=== PATIENT | male | born 1990 | race American Indian/Alaskan Native ===

== ENCOUNTER 2017-01-09 07:09 | Emergency (ER) | payer BC ==
[2017-01-09 07:35] VITALS: BP 134/74
--- NOTE | 2017-01-09 08:20 | Emergency Department Report ---
HPI - General Chief Complaint: Headache Time Seen by Provider: 01/09/17 08:06 - HPI HPI: 26-year-old male presents today with headache since 2200 hrs. last night. Positive for history of headaches but states that this is the worst headache he' s ever had. Denies head injury or loss of consciousness. Patient states usually ibuprofen works but he's had ibuprofen 800 mg without relief. Positive for nasal congestion. Describes his pain as 8 out of 10 constant, throbbing pain. Denies numbness, weakness, paresthesias. Denies fever, chills, nausea, vomiting, visual changes, dizziness, confusion, cough, chest pain, shortness of breath, abdominal pain. Patient denies any testicular pain, mass, urinary symptoms or penile discharge at this time. ED Past Medical Hx - Past Medical History Previous Medical History?: No - Surgical History Past Surgical History?: No - Social History Smoking Status: Current Every Day Smoker Substance Use Type: Alcohol - Medications Home Medications: Home Medications Medication Instructions Recorded Confirmed Last Taken Type Amoxicillin [Trimox CAP] 500 mg PO Q8H #30 capsule 12/30/14 Unknown Rx HYDROcodone/APAP 5-325 [[place] 1 each PO Q6HR PRN #12 tablet 12/30/14 Unknown Rx 5/325] predniSONE [Deltasone] 20 mg PO TID #9 tab 12/30/14 Unknown Rx Cephalexin [Keflex] 500 mg PO TID #21 cap 09/08/15 Unknown Rx ED Review of Systems ROS: Stated complaint: HEADACHES/GROIN PAIN Other details as noted in HPI Constitutional: denies: chills, fever, malaise Eyes: denies: eye pain, vision change ENT: denies: ear pain, throat pain, congestion Respiratory: denies: cough, shortness of breath, wheezing Cardiovascular: denies: chest pain, palpitations Endocrine: no symptoms reported Gastrointestinal: denies: abdominal pain, nausea, vomiting Genitourinary: denies: urgency, dysuria, frequency, hematuria, discharge, testicular pain, testicular mass Musculoskeletal: denies: back pain Neurological: headache. denies: weakness, numbness, paresthesias, confusion, abnormal gait Physical Exam - Physical Exam Vital Signs: Vital Signs 01/09/17 07:29 Temperature 97.7 F Pulse Rate 84 Respiratory 18 Rate Blood Pressure 134/74 O2 Sat by Pulse 98 Oximetry Physical Exam: GENERAL: The patient is well-developed and well-nourished. Patient is in NAD. HEAD: Normocephalic. Atraumatic. EYES: Extraocular motions are intact, PERRL. EARS: External auditory canals and tympanic membranes clear; hearing grossly intact. NOSE: Normal nasal mucosa with no nasal discharge. THROAT: No erythema, swelling or exudates. NECK: Supple, nontender, without lymphadenopathy. No meningitic signs are noted. No midline or paraspinal tenderness to palpation. Full range of motion. CHEST/LUNGS: Clear to auscultation throughout. HEART/CARDIOVASCULAR: Regular rate and rhythm. No murmurs, rubs or gallops. ABDOMEN: Abdomen is soft, nontender. Bowel sounds normoactive. No guarding or rebound tenderness. EXTREMITIES: Peripheral pulses intact. Capillary refill less than 2 seconds. NEURO: Alert and oriented x 3. Normal gait. CN II-XII intact. Symmetrical strength and sensation. Negative Romberg or pronator drift. Cerebellar testing normal. GCS score of 15. ED Course Vital Signs 01/09/17 07:29 Temperature 97.7 F Pulse Rate 84 Respiratory 18 Rate Blood Pressure 134/74 O2 Sat by Pulse 98 Oximetry ED Medical Decision Making - Lab Data Vital Signs 01/09/17 07:29 Temperature 97.7 F Pulse Rate 84 Respiratory 18 Rate Blood Pressure 134/74 O2 Sat by Pulse 98 Oximetry - Radiology Data Radiology results: report reviewed CT HEAD WITHOUT CONTRAST: HISTORY: Headache. Serial contiguous axial images were obtained through the cranium. Intravenous contrast material was not administered. The ventricles are normal in size and appearance. There is no mass effect or midline shift. No areas of abnormally increased or decreased attenuation are seen. No mass lesion is seen. The mastoid air cells and visualized portions of the sinuses are normal. IMPRESSION: Cranial CT scan within normal limits. - Medical Decision Making 26-year-old male presents today with headaches since 2200 hrs. last night that S worse than usual. His CT results revealed no acute processes. Patient has been given Toradol, Benadryl, Zofran, [place] and reports symptomatic relief. A referral for neurologist has been provided. Patient is in no acute distress at this time. He will be discharged home and is encouraged to follow up with a primary care provider. He is encouraged to return to the emergency room for any worsening symptoms. Critical care attestation.: If time is entered above; I have spent that time in minutes in the direct care of this critically ill patient, excluding procedure time. ED Disposition Clinical Impression: Headache Qualifiers: Headache type: unspecified Headache chronicity pattern: acute headache Intractability: not intractable Qualified Code(s): R51 - Headache Disposition: DISCHARGED TO HOME OR SELFCARE Is pt being admited?: No Does the pt Need Aspirin: No Condition: Stable Instructions: Acute Headache (ED) Additional Instructions: Follow-up with primary care provider. Return to the emergency department if symptoms worsen. Referrals: PRIMARY CAREMD [Primary Care Provider] - 3-5 Days DARRON SMITH MD [Staff Physician] - 3-5 Days [facility] [Outside] - 3-5 Days Forms: Work/School Release Form(ED)
--- NOTE | 2017-01-09 09:02 | Cat Scan Report ---
CT HEAD WITHOUT CONTRAST: HISTORY: Headache. Serial contiguous axial images were obtained through the cranium. Intravenous contrast material was not administered. The ventricles are normal in size and appearance. There is no mass effect or midline shift. No areas of abnormally increased or decreased attenuation are seen. No mass lesion is seen. The mastoid air cells and visualized portions of the sinuses are normal. IMPRESSION: Cranial CT scan within normal limits.
[2017-01-09] MEDS ORDERED: NORCO 5/325 PO ONE (09:09)
[2017-01-09] MEDS ORDERED: ZOFRAN ODT PO ONE (09:09)
[2017-01-09] MEDS ORDERED: TORADOL IM ONE (09:09)
[2017-01-09] MEDS ORDERED: BENADRYL PO ONE (09:09)
== END 2017-01-09 10:01 | disposition home or self-care (01) ==
LOC: ED 07:09
DX: R51 Headache (principal); F17.200 Nicotine dependence, unspecified, uncomplicated
CPT/HCPCS: 70450; 96372; 99283; J1885; Q0162

== ENCOUNTER 2017-01-30 10:40 | Emergency (ER) | payer BC ==
[2017-01-30 11:18] VITALS: BP 131/87
[2017-01-30] MEDS ORDERED: ZITHROMAX PO ONE (13:26)
[2017-01-30] MEDS ORDERED: ROCEPHIN IM ONE ×2 (13:26→13:35)
[2017-01-30] MEDS ORDERED: XYLOCAINE 1% MPF 5 mL INFILTRATI ONE (13:35)
--- NOTE | 2017-01-30 13:41 | Emergency Department Report ---
ED Male HPI - General Chief complaint: Urogenital-Male Stated complaint: POSS STD Time Seen by Provider: 01/30/17 12:59 Source: patient Mode of arrival: Ambulatory Limitations: No Limitations - History of Present Illness Initial comments: 26 year old male presents to ED with dysuria and penile discharge x3 weeks. patient states the discharge is clear in color. patient states he is sexually active with use of protection during sexual encounters. patient is stable, neurologically intact and in no acute distress. MD Complaint: dysuria -: Gradual, week(s) (3) Location: penis Radiation: none Severity: mild Quality: burning Consistency: constant Improves with: none Worsens with: urination discharge (clear), dysuria. denies: swelling, mass, rash, fever - Related Data Sexually active: Yes (patient states he uses protection during sexual intercourse) Previous Rx's Medication Instructions Recorded Last Taken Type Amoxicillin [Trimox CAP] 500 mg PO Q8H #30 capsule 12/30/14 Unknown Rx HYDROcodone/APAP 5-325 [[place] 1 each PO Q6HR PRN #12 tablet 12/30/14 Unknown Rx 5/325] predniSONE [Deltasone] 20 mg PO TID #9 tab 12/30/14 Unknown Rx Cephalexin [Keflex] 500 mg PO TID #21 cap 09/08/15 Unknown Rx Phenazopyridine [Pyridium] 100 mg PO TID #6 tab 01/30/17 Unknown Rx Sulfamethoxazole/Trimethoprim 1 each PO BID #14 tablet 01/30/17 Unknown Rx [Bactrim DS TAB] Allergies Allergy/AdvReac Type Severity Reaction Status Date / Time No Known Allergies Allergy Unverified 12/30/14 09:51 ED Review of Systems ROS: Stated complaint: POSS STD Other details as noted in HPI Constitutional: denies: chills, fever Eyes: denies: eye pain ENT: denies: ear pain, throat pain Respiratory: denies: cough, shortness of breath, wheezing Cardiovascular: denies: chest pain, palpitations Endocrine: no symptoms reported Gastrointestinal: denies: abdominal pain, nausea, diarrhea Genitourinary: dysuria, discharge. denies: urgency, testicular pain, testicular mass Musculoskeletal: denies: back pain, joint swelling, arthralgia Skin: denies: rash, lesions Neurological: denies: headache, weakness Psychiatric: denies: anxiety, depression Hematological/Lymphatic: denies: easy bleeding ED Past Medical Hx - Past Medical History Previous Medical History?: No - Surgical History Past Surgical History?: No - Social History Smoking Status: Unknown if ever smoked - Medications Home Medications: Home Medications Medication Instructions Recorded Confirmed Last Taken Type Amoxicillin [Trimox CAP] 500 mg PO Q8H #30 capsule 12/30/14 Unknown Rx HYDROcodone/APAP 5-325 [[place] 1 each PO Q6HR PRN #12 tablet 12/30/14 Unknown Rx 5/325] predniSONE [Deltasone] 20 mg PO TID #9 tab 12/30/14 Unknown Rx Cephalexin [Keflex] 500 mg PO TID #21 cap 09/08/15 Unknown Rx Phenazopyridine [Pyridium] 100 mg PO TID #6 tab 01/30/17 Unknown Rx Sulfamethoxazole/Trimethoprim 1 each PO BID #14 tablet 01/30/17 Unknown Rx [Bactrim DS TAB] ED Physical Exam - General Limitations: No Limitations General appearance: alert, in no apparent distress - Head Head exam: Present: atraumatic - Eye Eye exam: Present: normal appearance Pupils: Present: normal accommodation - ENT ENT exam: Present: normal exam - Neck Neck exam: Present: normal inspection - Respiratory Respiratory exam: Present: normal lung sounds bilaterally - Cardiovascular Cardiovascular Exam: Present: regular rate, normal heart sounds - GI/Abdominal GI/Abdominal exam: Present: soft, normal bowel sounds. Absent: distended, tenderness - Rectal Rectal exam: Present: deferred - exam: Present: circumcision. Absent: testicular tenderness, urethral discharge, scrotal swelling External exam: Present: normal external exam, lesions - Extremities Exam Extremities exam: Present: normal inspection - Back Exam Back exam: Present: normal inspection - Neurological Exam Neurological exam: Present: alert, oriented X3, normal gait - Psychiatric Psychiatric exam: Present: normal affect, normal mood - Skin Skin exam: Present: warm, dry, intact ED Course Vital Signs 01/30/17 11:16 Temperature 98.2 F Pulse Rate 80 Respiratory 20 Rate Blood Pressure 131/87 O2 Sat by Pulse 100 Oximetry ED Medical Decision Making - Medical Decision Making 26 year old male presents to ED with dysuria. Patient has been treated with azithromycin and rocephin empirically during ED visit and urine/GC culture have been sent to ED. patient is aware that he will be called with positive results or he can call back to medical records for results. patient is stable, neurologically intact and in no acute distress. Critical care attestation.: If time is entered above; I have spent that time in minutes in the direct care of this critically ill patient, excluding procedure time. ED Disposition Clinical Impression: UTI (urinary tract infection) Qualifiers: Urinary tract infection type: urethritis Qualified Code(s): N34.2 - Other urethritis Disposition: DISCHARGED TO HOME OR SELFCARE Is pt being admited?: No Does the pt Need Aspirin: No Condition: Stable Instructions: Urinary Tract Infection in Men (ED), Sexually Transmitted Diseases in Adolescents (ED) Prescriptions: Phenazopyridine [Pyridium] 100 mg PO TID #6 tab Sulfamethoxazole/Trimethoprim [Bactrim DS TAB] 1 each PO BID #14 tablet Referrals: PRIMARY CARE, [Primary Care Provider] - 3-5 Days Time of Disposition: 15:08
[2017-01-30 14:41] LABS: Bilirubin,Urine NEG (Negative); Blood,Urine NEG (Negative); Ketones,Urine NEG (Negative); Leukocyte Esterase,Urine SM (Negative); Nitrite,Urine NEG (Negative); Protein,Urine <15 mg/dL mg/dL (Negative); Urobilinogen,Urine < 2.0 mg/dL (<2.0)
[2017-01-30 14:55] LABS: RBC,Urine < 1.0 /HPF (0.0-6.0)
== END 2017-01-30 15:09 | disposition home or self-care (01) ==
LOC: ED 10:40
DX: N34.2 Other urethritis (principal)
CPT/HCPCS: 81001; 87086; 87591; 96372; 99283; J0696